=== PATIENT | male | born 1975 | race Caucasian/White ===

== ENCOUNTER 2023-02-12 10:09 | Day surgery (SDC) | payer BC ==
[2023-02-08 12:11] VITALS: BMI 32.1
[~2023-02-12 10:09] MED LIST: LACTATED RINGERS 1,000 ML IV SCH; LIDOCAINE 1% (10MG/ML) FOR IV START INTRADERMA PRN
[2023-02-12] MEDS ORDERED: LACTATED RINGERS 1,000 ML IV ONE (10:40)
[2023-02-12 10:57] VITALS: TEMP 98
[2023-02-12] MEDS ORDERED: PROPOFOL 10 MG/ML 20 ML VIAL IV ONE (11:48)
--- NOTE | 2023-02-12 12:06 | P.PCN ---
Date of Procedure: 02/12/23 Procedure(s) Performed: BRIEF HISTORY: Patient is a 47-year-old pleasant male scheduled for an elective colonoscopy as a part of screening for colon cancer. PROCEDURE PERFORMED: Colonoscopy with biopsy. PREOPERATIVE DIAGNOSIS: Screening for colon cancer. IV sedation per Anesthesia. PROCEDURE: After informed consent was obtained, the patient, was brought into the endoscopy unit. IV sedation was administered by Anesthesia under continuous monitoring. Digital rectal examination was normal. Initially the Olympus CF-160 flexible video colonoscope was then inserted in the rectum, gradually advanced into the cecum without any difficulty. Careful examination was performed as the scope was gradually being withdrawn. Ileocecal valve and the appendiceal orifice were visualized and appeared normal. Prep was excellent. Mucosa of the cecum, ascending colon, transverse colon, descending colon, sigmoid colon, and rectum appeared normal. The proximal rectum there was a 3 mm polyp that was removed by cold biopsy. Retroflexion was performed in the rectum and no lesions were seen. The patient tolerated the procedure well. IMPRESSION: 3 mm proximal rectal polyp status post cold biopsy Rest of the colon appeared normal. RECOMMENDATIONS: Findings of this examination were discussed with the patient as well as his family. He was advised to follow with the biopsy results and have a repeat screening colonoscopy in 10 years..
[2023-02-12 12:38] VITALS: BP 122/58; PULSE 68; RESP 16
== END 2023-02-12 12:50 | disposition home or self-care (01) ==
LOC: ORWHC2ENDO 10:09
PROVIDERS: ATTEND Internal Medicine Gastroenterology
DX: Z12.11 Encounter for screening for malignant neoplasm of colon (principal); K62.1 Rectal polyp; E78.5 Hyperlipidemia, unspecified; F17.290 Nicotine dependence, other tobacco product, uncomplicated; Z79.810 Long term (current) use of selective estrogen receptor modulators (SERMs); Z79.899 Other long term (current) drug therapy; Z88.2 Allergy status to sulfonamides
CPT/HCPCS: 88305; 45380; J2704

== ENCOUNTER → 2023-06-27 | Outpatient (CLI) | payer BC ==
[2023-06-27 16:18] LABS: ALT 33 U/L (10-49); AST 30 U/L (14-35); Albumin 4.9 g/dL (3.8-4.9); Albumin/Globulin Ratio 1.88 Ratio (1.60-3.17); Alkaline Phosphatase 136 U/L (41-126); BUN/Creat Ratio 22.38 Ratio (12.00-20.00); Blood Urea Nitrogen 17.9 mg/dL (9.0-27.0); Calcium 9.7 mg/dL (8.7-10.3); Carbon Dioxide 24.5 mmol/L (21.6-31.8); Chloride 105 mmol/L (96-109); Globulin 2.6 g/dL (1.6-3.3); Glucose 95 mg/dL (70-110); Potassium 4.2 mmol/L (3.5-5.5); Sodium 142 mmol/L (135-145); Total Bilirubin 0.4 mg/dL (0.3-1.2); Total Protein 7.5 g/dL (6.2-8.2)
[2023-06-27 16:59] LABS: Basophils # (A) 0.07 X 10*3/uL (0.00-0.10); Basophils % (A) 0.9 %; Eosinophils # (A) 0.47 X 10*3/uL (0.04-0.35); Eosinophils % (A) 5.7 %; HCT 45.4 % (39.6-50.0); HGB 15.2 g/dL (13.0-17.0); Lymphocytes # (A) 2.36 X 10*3/uL (0.90-5.00); Lymphocytes % (A) 28.7 %; MCHC 33.5 g/dL (32.0-37.0); MCV 92.7 FL (80.0-97.0); Mean Platelet Volume 11.3 FL (9.5-12.2); Monocytes # (A) 0.72 X 10*3/uL (0.20-1.00); Monocytes % (A) 8.8 %; NRBC Per 100 WBC 0 X 10*3/uL (0.00-0.01); Neutrophils # (A) 4.57 X 10*3/uL (1.80-7.70); Neutrophils % (A) 55.5 %; Platelet Count 313 X 10*3/uL (140-440); RDW 11.9 % (11.5-14.5); WBC 8.22 X 10*3/uL (4.50-10.00)
== END | disposition home or self-care (01) ==
LOC: LABWHC1 08:32
PROVIDERS: ATTEND Internal Medicine
DX: E78.5 Hyperlipidemia, unspecified (principal); R53.83 Other fatigue
CPT/HCPCS: 36415; 80053; 80061; 82306; 82607; 84402; 84403; 84443; 85025

== ENCOUNTER → 2023-09-03 | Outpatient (CLI) | payer BC ==
--- NOTE | 2023-09-03 14:52 | P.SLEEP ---
History of Present Illness H&P Date: 09/03/23 A pleasant 48-year-old male patient presenting today with his , Sandrita Viera, for sleep apnea evaluation. The patient is been noted to have loud snoring and the clearly describes episodes of apneas occurring during sleep. This has become more frequent recently and the patient was accordingly referred to me for sleep apnea evaluation. The patient is excessively fatigued and sleepy during the day. 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 Sometimes during breaks, he takes naps. [employer] during meetings are on the job and he has not fallen asleep while driving his car. His current [place] score is 19. No sleep paralysis. No hallucinations. No cat aplexy. No restlessness in his lower extremities. No trauma. He has previous history of PTSD and has been maintained on Zoloft at a dose of 50 mg p.o. daily. He has PTSD related to his service and COVID operations in the [employer]. He has hyperlipidemia in addition. No history of coronary disease. No history of atrial fibrillation. No recent weight gain. He has a chronic septal deviation and he has difficulty breathing through his left nostril. On examination he also has an overbite. Go to bed around 8 PM, wakes up 4 AM in the morning. He maintains the same schedule on the weekends. He wakes up not refreshed. Excessive utilization of alcoholic beverages. No smoking. No personal or family history of obstructive sleep apnea. No history of coronary artery disease. No stroke. No congestion heart failure. Does not take any naps during the day however he has no stamina or energy to do any activities the patient feels constantly tired and fatigued. Review of Systems Constitutional: Reports chronic pain, Reports fatigue Eyes: denies as per HPI, denies blurred vision, denies bulging eye, denies decreased vision, denies diplopia, denies discharge, denies dry eye, denies irritation, denies itching, denies pain, denies photophobia, denies loss of peripheral vision, denies loss of vision, denies tunnel vision/blind spots Ears: deny: decreased hearing, ear discharge, earache, tinnitus Ears, nose, mouth and throat: Reports as per HPI Breasts: absent: as per HPI, gynecomastia Cardiovascular: Reports as per HPI Respiratory: Reports snoring Gastrointestinal: Reports as per HPI Genitourinary: Reports as per HPI Musculoskeletal: Reports as per HPI Musculoskeletal: absent: ankle pain, ankle stiffness, ankle swelling, as per HPI, elbow pain, elbow stiffness, elbow swelling, foot pain, foot stiffness, foot swelling, hand pain, hand stiffness, hand swelling, hip pain, hip stiffness, hip swelling, knee pain, knee stiffness, knee swelling, shoulder pain, shoulder stiffness, shoulder swelling, wrist pain, wrist stiffness, wrist swelling Integumentary: Reports as per HPI Neurological: Reports as per HPI Psychiatric: Reports as per HPI Endocrine: Reports as per HPI, Reports fatigue Hematologic/Lymphatic: Reports as per HPI Allergic/Immunologic: Reports as per HPI Past Medical History Past Medical History: Hyperlipidemia Additional Past Medical History / Comment(s): PTSD History of Any Multi-Drug Resistant Organisms: None Reported Past Surgical History: Adenoidectomy, Tonsillectomy Past Anesthesia/Blood Transfusion Reactions: No Reported Reaction Smoking Status: Current some day smoker, Former smoker, Vaper Medications and Allergies Home Medications Medication Instructions Recorded Confirmed Type Lovastatin [Mevacor] 20 mg PO DAILY 02/08/23 02/08/23 History Sertraline [Zoloft] 50 mg PO DAILY 02/08/23 02/08/23 History Allergies Allergy/AdvReac Type Severity Reaction Status Date / Time Sulfa (Sulfonamide AdvReac Rash/Hives Verified 02/08/23 11:58 Antibiotics) Physical Exam The patient appeared well nourished and normally developed. Vital signs as documented. Head exam is unremarkable. No scleral icterus or corneal arcus noted. Neck is without jugular venous distension, thyromegaly, or carotid bruits. The patient has a Mallampati class IV with significant crowding of posterior pharynx. He has an overbite. Carotid upstrokes are brisk bilaterally. Lungs are clear to auscultation and percussion. Cardiac exam reveals the PMI to be normally sized and situated. Rhythm is regular. First and second heart sounds normal. No murmurs, rubs or gallops. Abdominal exam reveals normal bowel sounds, no masses, no organomegaly and no aortic enlargement. Extremities are nonedematous and both femoral and pedal pulses are normal. Examination of the skin revealed no evidence of significant rashes, suspicious appearing nevi or other concerning lesions. Neurologically, the patient is awake and alert and the patient does not have any focal neurological deficit. Cranial nerves are essentially intact. Assessment and Plan Plan: Chronic fatigue and sleepiness with an [place] score of 19 currently under investigation. High likelihood for underlying obstructive sleep apnea. Other comorbidities could also contribute to this including history of PTSD. Patient is currently on Zoloft. No recent weight gain. The patient is a Mallampati class IV. Body mass index is 33.8. PTSD on Zoloft Hyperlipidemia Nasal septal deviation, traumatic in nature. Plan Will proceed with a screening polysomnogram to evaluate this patient for the presence of sleep apnea. He is quite symptomatic and is interested in therapy if the diagnosis of sleep apnea is confirmed. Based on that, the patient is going to undergo of ultrasonography and will decide on treatment options accordingly. Encourage weight loss. Maintain strict sleep hygiene measures. Extend sleep hours on average of 7 to 8 hours per night if possible. Will continue to follow. Sleep Note - Sleep Note Sleep Note: Temperature: Pulse Rate: Respiratory Rate: Blood Pressure: SpO2: Height: Weight: BMI: Neck Circumference:
== END ==
LOC: 3 N SLEEP 13:17
PROVIDERS: ATTEND Internal Medicine Critical Care Medicine
DX: G47.33 Obstructive sleep apnea (adult) (pediatric) (principal); R53.82 Chronic fatigue, unspecified; F43.10 Post-traumatic stress disorder, unspecified; E78.5 Hyperlipidemia, unspecified; J34.2 Deviated nasal septum; Z68.33 Body mass index [BMI] 33.0-33.9, adult; Z88.2 Allergy status to sulfonamides
CPT/HCPCS: 99211

== ENCOUNTER → 2023-09-09 | Outpatient (CLI) | payer BC | END | disposition home or self-care (01) | LOC: LABWHC1 11:53 | PROVIDERS: ATTEND Internal Medicine | DX: R74.8 Abnormal levels of other serum enzymes (principal) | CPT/HCPCS: 36415; 83970 ==

== ENCOUNTER → 2023-10-15 | Outpatient (CLI) | payer BC ==
--- NOTE | 2023-10-25 12:22 | P.PCN ---
Date of Procedure: 11/14/23 Operative Findings: Home sleep study testing Date of service is 10/15/2023 History A pleasant 48-year-old male patient presenting today with his , Sandrita Viera, for sleep apnea evaluation. The patient is been noted to have loud snoring and the clearly describes episodes of apneas occurring during sleep. This has become more frequent recently and the patient was accordingly referred to me for sleep apnea evaluation. The patient is excessively fatigued and sleepy during the day. 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 Sometimes during breaks, he takes naps. Alert during meetings are on the job and he has not fallen asleep while driving his car. His current [place] score is 19. No sleep paralysis. No hallucinations. No cataplexy. No restlessness in his lower extremities. No trauma. He has previous history of PTSD and has been maintained on Zoloft at a dose of 50 mg p.o. daily. He has PTSD related to his service in the [employer]. He has hyperlipidemia in addition. No history of coronary disease. No history of atrial fibrillation. No recent weight gain. He has a chronic septal deviation and he has difficulty breathing through his left nostril. On examination he also has an overbite. Go to bed around 8 PM, wakes up 4 AM in the morning. He maintains the same schedule on the weekends. He wakes up not refreshed. Excessive utilization of alcoholic beverages. No smoking. No personal or family history of obstructive sleep apnea. No history of coronary artery disease. No stroke. No congestion heart failure. Does not take any naps during the day however he has no stamina or energy to do any activities the patient feels constantly tired and fatigued. Technical description The Venaxis system was used to complete his home sleep study. This is a type III home sleep study. Total recording duration was 8 hours and 36 minutes. The study started at 7:41 PM and ended at 4:17 AM. The patient had more than 8 hours of flow and oxygen saturation monitoring throughout the sleep study. As such, this is an adequate sleep study Results Respiratory analysis showed a total of 32 obstructive apneas and 80 obstructive hypopneas. The resulting AHI was 13, with an supine body position with an AHI of 25 while being in a supine body position. Oxygenation analysis The baseline pulse ox while awake was 94%, average pulse ox during sleep was 94%, lowest pulse ox was 83% and the patient spent 1 minute of the sleep time below pulse ox of 89% Cardiac summary Average heart rate was 54 with minimum heart rate of 41 and a maximum heart rate was 100 Assessment Obstructive sleep apnea, mild positional, baseline AHI was 13, worsened in supine body position with an AHI of 25 while being supine. No significant nocturnal oxygen saturations. Chronic fatigue and excessive sleepiness with an [place] score of 19 Hyperlipidemia Previous history of PTSD Plan Will give advised to sleep on his side as the patient's disease is positional Based on his excessive fatigue and sleepiness, will give the patient a trial of APAP therapy pressures of 5/15 cm of water with appropriate mask interface and the patient will see me back in the office in 30 to 90 days to assess clinical response and compliancy. Will continue to follow.
== END ==
LOC: 3 N SLEEP 16:55
PROVIDERS: ATTEND Internal Medicine Critical Care Medicine
DX: G47.33 Obstructive sleep apnea (adult) (pediatric) (principal); E78.5 Hyperlipidemia, unspecified; F43.10 Post-traumatic stress disorder, unspecified; R53.82 Chronic fatigue, unspecified; J34.2 Deviated nasal septum; Z88.2 Allergy status to sulfonamides

== ENCOUNTER → 2024-07-20 | Outpatient (CLI) | payer BC ==
--- NOTE | 2024-07-20 17:00 | CT ---
EXAMINATION TYPE: CT iac wo con DATE OF EXAM: 07/20/2024 4:55 PM COMPARISON: None. INDICATION: Patient age: Male; 48 years old; Reason for study: H90.5 SENSORINEURALHEARING LOSS; PHH. TECHNIQUE: Multiple thin axial images were obtained through the temporal bones and internal auditory canals. Additional coronal reformatted images were obtained. No IV contrast was utilized. STENVER a nd POSCHL views were created on a separate work station. CT Contrast: mL of , none. CT DLP: 142.70 mGycm, Automated exposure control for dose reduction was used. FINDINGS: Right Temporal Bone: External Ear: The external auditory canal is unremarkable, The tympanic membrane is present and unrem arkable. Middle Ear: The ossicles demonstrate a normal appearance. Prussak's space is clear and the scutum i s intact. There is no evidence of osseous erosion and the tegmen tympani is intact. Inner Ear: Cochlea, vestibule and semi circular canals are unremarkable. No evidence of carotid valentine l dehiscence. Two and a half turns of the cochlea are identified. The vestibular aqueduct is not enl arged. Mastoid Air Cells: The mastoid air cells are clear. The tegmen mastoideum is intact. The aditus ad an trum is clear. Internal Auditory Canal: The internal auditory canal is unremarkable. Left Temporal Bone: External Ear: The external auditory canal is unremarkable, The tympanic membrane is present and unrem arkable. Middle Ear: The ossicles demonstrate a normal appearance. Prussak's space is clear and the scutum i s intact. There is no evidence of osseous erosion and the tegmen tympani is intact. Inner Ear: Cochlea, vestibule and semi circular canals are unremarkable. No evidence of carotid valentine l dehiscence. Two and a half turns of the cochlea are identified. The vestibular aqueduct is not enl arged. Mastoid Air Cells: The mastoid air cells are clear. The tegmen mastoideum is intact. The aditus ad an trum is clear. Internal Auditory Canal: The internal auditory canal is unremarkable. Other: Mild paranasal sinus mucosal thickening. Leftward deviated nasal septum. Mucosal thickening of the bilateral nasal turbinates and nasal septum. IMPRESSION: Normal internal auditory canal study. [facility], , 07/20/2024 4:58 PM
== END | disposition home or self-care (01) ==
LOC: RADCTMAIN 16:31
PROVIDERS: ATTEND Internal Medicine
DX: H90.5 Unspecified sensorineural hearing loss (principal)
CPT/HCPCS: 70480